=== PATIENT | male | born 1950 | race Caucasian/White ===

== ENCOUNTER 2020-01-22 08:09 | Outpatient (CLI) | payer MEDICARE, OTHER, SELFPAY | END 2020-01-22 08:10 | disposition home or self-care (01) | PROVIDERS: PCP Internal Medicine; Visit Provider Internal Medicine Pulmonary Disease | DX: J44.9 Chronic obstructive pulmonary disease, unspecified (principal) | CPT/HCPCS: 94060; 94726; 94729 ==

== ENCOUNTER 2021-12-20 07:24 | Outpatient (CLI) | payer MEDICARE, OTHER, SELFPAY ==
--- NOTE | ~2021-12-20 | US_ITS ---
EXAMINATION: US aorta [facility] scr[facility] DATE: 12/20/2021 08:24 INDICATION: Abdominal aortic aneurysm screening, history of hypertension, tobacco use, and hyperchole sterolemia TECHNIQUE: Grayscale, color Doppler, and pulsed Doppler images of the aorta and common iliac arteries were obtained. COMPARISON: None. FINDINGS: Maximum vascular dimensions are as follows: Proximal aorta: 2.7 cm Mid aorta: 2.0 cm Distal aorta: 2.0 cm Right common iliac artery: 1.2 cm Left common iliac artery: 1.1 cm There is no evidence of abdominal aortic aneurysm. IMPRESSION: 1. No sonographic evidence of abdominal aortic aneurysm. Reviewed, dictated and finalized at location A.
[2021-12-20 09:12] LABS: Cholesterol 124 mg/dL (0-200); HDL Direct 43 mg/dL; Triglycerides 136 mg/dL (<150)
[2021-12-20 09:23] LABS: LDL Cholesterol Direct 53 mg/dL
== END 2021-12-20 07:25 | disposition home or self-care (01) ==
PROVIDERS: PCP Internal Medicine; Visit Provider Internal Medicine Cardiovascular Disease
DX: Z72.0 Tobacco use (principal); I73.9 Peripheral vascular disease, unspecified; R09.89 Other specified symptoms and signs involving the circulatory and respiratory systems; E78.5 Hyperlipidemia, unspecified
CPT/HCPCS: 36415; 76706; 80061

== ENCOUNTER 2022-03-27 10:11 | Outpatient (CLI) | payer MEDICARE, OTHER, SELFPAY ==
--- NOTE | ~2022-03-27 | US_ITS ---
EXAMINATION: US carotid duplex BI DATE: 03/27/2022 10:51 INDICATION: Carotid bruits TECHNIQUE: Grayscale, color Doppler, and pulsed Doppler images of the cervical carotid arteries were obtained. The degree of vessel stenosis is placed in one of the following categories: normal, <50%, 5 0-69%, >=70% but less than near-occlusion, near-occlusion, or total occlusion. Note that percent sten osis relative to normal distal artery lumen diameter is indirectly measured from velocity measurement s as described by Rahul, et al. Radiology 2003; 229:340-346. Notes: Normal: Peak systolic velocity <125 centimeters/sec and no plaque <50%. Peak systolic velocity <125 ( EDV <40; ICA/CCA PSV ratio <2.0; used these factors only a tandem lesions or low cardiac output or co ntralateral disease) 50-69 %: PSV 125-230 (EDV 40-100; ratio 2-4) >= 70% but less than near occlusion: PSV greater than 230 (EDV > 100; ratio> 4.0) Near Occlusion: PSV that is variable; markedly narrowed lumen Occlusion: Absent flow on color/spectral Doppler and no lumen on simeon scale. COMPARISON: None. FINDINGS: RIGHT: The right common carotid artery (CCA) peak systolic velocity (PSV) is 126 cm/s. The right internal ca rotid artery (ICA) PSV is 56 cm/s. The right ICA end-diastolic velocity (EDV) is 16 cm/s. The right I CA/CCA PSV ratio is 0.4. The external carotid artery (ECA) PSV is 85 cm/s. There is antegrade flow in the right vertebral artery. LEFT: The left CCA PSV is 104 cm/s. The left ICA PSV is 61 cm/s. The left ICA EDV is 15 cm/s. The left ICA/ CCA PSV ratio is 0.6. The ECA PSV is 96 cm/s. There is antegrade flow in the left vertebral artery. IMPRESSION: 1. Less than 50% stenosis in the right internal carotid artery by sonographic criteria. 2. Less than 50% stenosis in the left internal carotid artery by sonographic criteria. Reviewed, dictated and finalized at location B. RPRISE SYSTEMS MANAGER IMPRESSION: 1. Less than 50% stenosis in the right internal carotid artery by sonographic osmany travis. 2. Less than 50% stenosis in the left internal carotid artery by sonographic kristyn palacios.
== END 2022-03-27 10:12 | disposition home or self-care (01) ==
PROVIDERS: PCP Internal Medicine; Visit Provider Internal Medicine Cardiovascular Disease
DX: I65.23 Occlusion and stenosis of bilateral carotid arteries (principal)
CPT/HCPCS: 93880

== ENCOUNTER 2022-04-07 09:51 | Outpatient (CLI) | payer MEDICARE, SELFPAY ==
[2022-04-07 10:56] LABS: Alanine Aminotransferase 34 U/L (16-63); Albumin Level 3.9 g/dL (3.4-5.0); Alkaline Phosphatase 85 U/L (46-116); Anion Gap 8 mmol/L (8-16); Aspartate Amino Transferase 15 U/L (15-37); Bilirubin,Total 0.4 mg/dL (0.00-1.00); Blood Urea Nitrogen 21 mg/dL (7-18); Calcium 8.9 mg/dL (8.5-10.1); Carbon Dioxide 32 mmol/L (21-32); Chloride 105 mmol/L (98-108); Cholesterol 118 mg/dL (0-200); Estimated Glomerular Filt Rate > 60; Glucose 114 mg/dL (70-99); HDL Direct 52 mg/dL (40-60); LDL Cholesterol Calculated 42 mg/dL (<130); Osmolality Calculated 304 mOsm/kg (285-295); Potassium 4.1 mmol/L (3.5-5.1); Sodium 145 mmol/L (136-145); Total Protein 6.8 g/dL (6.4-8.2); Triglycerides 121 mg/dL (0-150)
== END 2022-04-07 09:52 | disposition home or self-care (01) ==
LOC: CHSLAB 09:55
PROVIDERS: PCP Internal Medicine; Visit Provider Internal Medicine Cardiovascular Disease
DX: E78.5 Hyperlipidemia, unspecified (principal); I10 Essential (primary) hypertension
CPT/HCPCS: 36415; 80053; 80061

== ENCOUNTER 2023-10-15 12:59 | Outpatient (CLI) | payer MEDICARE, OTHER, SELFPAY ==
--- NOTE | ~2023-10-15 | XR_ITS ---
Clinical Indication: Shortness of breath PA and lateral views of the chest: Comparison: 05/04/2017 Findings: The lungs are clear, without evidence of focal consolidation or pleural effusion. Probable COPD. Cardiomediastinal silhouette is within normal limits. Bones and soft tissues are unremarkable. Impression: Clear lungs. Probable COPD. Reviewed, dictated and finalized at location . Impression: Clear lungs. Probable COPD.
== END 2023-10-15 13:00 | disposition home or self-care (01) ==
LOC: CHSIMG 13:01
PROVIDERS: PCP Internal Medicine; Visit Provider Internal Medicine Pulmonary Disease
DX: R06.02 Shortness of breath (principal)
CPT/HCPCS: 71046

== ENCOUNTER 2024-10-27 07:55 | Outpatient (CLI) | payer MEDICARE, OTHER, SELFPAY ==
[2024-10-27 08:10] LABS: Basophils Absolute Auto 0.12 K/mm3 (0.00-0.10); Basophils Percent Auto 0.7 % (0.0-1.0); Eosinophils Absolute Auto 0.51 K/mm3 (0.02-0.50); Eosinophils Percent Auto 3.1 % (1.0-6.0); Hematocrit 44.4 % (37.0-46.0); Hemoglobin 15.1 g/dL (12.4-15.3); Immature Granulocyte Absolute 0.07 K/mm3 (0.00-0.00); Immature Granulocyte Percent A 0.4 % (0.0-0.0); Lymphocytes Absolute Auto 2.41 K/mm3 (1.10-4.50); Lymphocytes Percent Auto 14.7 % (18.0-42.0); Mean Corpuscular Hemoglobin 31.3 pg (27.0-31.0); Mean Corpuscular Volume 91.9 fL (78.0-102.0); Monocytes Absolute Auto 1.78 K/mm3 (0.10-0.90); Monocytes Percent Auto 10.9 % (2.0-11.0); Neutrophils Absolute Auto 11.45 K/mm3 (1.70-7.20); Neutrophils Percent Auto 70.2 % (50.0-70.0); Platelet Count Result 361 K/mm3 (150-420); Red Blood Count 4.83 M/mm3 (4.70-6.10); Red Cell Distribution Width 13.2 % (11.6-14.4); White Blood Count 16.3 K/mm3 (4.8-10.8)
[2024-10-27 08:47] LABS: Alanine Aminotransferase 22 U/L (6-50); Albumin Level 3.9 g/dL (3.5-5.1); Alkaline Phosphatase 69 U/L (38-126); Anion Gap 4 mmol/L (4-12); Aspartate Amino Transferase 35 U/L (17-59); Bilirubin,Total 0.6 mg/dL (0.2-1.3); Blood Urea Nitrogen 16 mg/dL (9-20); Calcium 8.8 mg/dL (8.4-10.2); Carbon Dioxide 32 mmol/L (22-30); Chloride 106 mmol/L (98-107); Cholesterol 106 mg/dL (0-200); Estimated Glomerular Filt Rate > 60; Glucose 105 mg/dL (65-110); HDL Direct 47 mg/dL; LDL Cholesterol Calculated 46 mg/dL (<130); Osmolality Calculated 295 mOsm/kg (285-295); Potassium 3.6 mmol/L (3.4-5.0); Sodium 142 mmol/L (137-145); Total Protein 6.4 g/dL (6.3-8.2); Triglycerides 67 mg/dL (<150)
[2024-10-27 09:17] LABS: Prostate Specific Antigen 4.4 ng/mL (< OR = 4.0)
== END 2024-10-27 07:56 | disposition home or self-care (01) ==
LOC: CHSLAB 08:00
PROVIDERS: PCP Internal Medicine; Visit Provider Internal Medicine
DX: E78.5 Hyperlipidemia, unspecified (principal); I10 Essential (primary) hypertension; R97.20 Elevated prostate specific antigen [PSA]
CPT/HCPCS: 36415; 80053; 80061; 84153; 85025

== ENCOUNTER 2025-04-21 10:33 | Outpatient (CLI) | payer MEDICARE, OTHER, SELFPAY ==
--- NOTE | ~2025-04-21 | US_ITS ---
EXAMINATION: US venous doppler LE RT, 04/21/2025 10:47 NURSING TEACHER HISTORY: R LEG EDEMA, PAD, COPD COMPARISON: None Technique: Quesada-scale and color Doppler images were attempted of the lower saphenofemoral junction, common femoral vein,superficial femoral vein, proximal deep femoral vein, proximal deep femoral vein, popliteal vein and posterior tibial veins. Findings: Deep Venous System:Normal flow, augmentation and compressibility. No echogenic thrombus identified. Superficial Venous SystemNo superficial thrombophlebitis. Soft tissues: Soft tissues are unremarkable. Impression: Negative for DVT. Reviewed, dictated and finalized at location P. ING TEACHER Impression: Negative for DVT.
[2025-04-21 10:55] LABS: Hematocrit 46.4 % (37.0-46.0); Hemoglobin 15.9 g/dL (12.4-15.3); Mean Corpuscular HGB Conc 34.3 g/dL (32-36); Mean Corpuscular Hemoglobin 31.4 pg (27.0-31.0); Mean Corpuscular Volume 91.5 fL (78.0-102.0); Platelet Count Result 345 K/mm3 (150-420); Red Blood Count 5.07 M/mm3 (4.70-6.10); White Blood Count 17.3 K/mm3 (4.8-10.8)
[2025-04-21 11:49] LABS: Alanine Aminotransferase 26 U/L (6-50); Albumin Level 4.6 g/dL (3.5-5.1); Alkaline Phosphatase 81 U/L (38-126); Anion Gap 11 mmol/L (4-12); Aspartate Amino Transferase 34 U/L (17-59); Bilirubin,Total 0.7 mg/dL (0.2-1.3); Blood Urea Nitrogen 22 mg/dL (9-20); Calcium 10.2 mg/dL (8.4-10.2); Carbon Dioxide 30 mmol/L (22-30); Chloride 102 mmol/L (98-107); Estimated Glomerular Filt Rate > 60; Glucose 97 mg/dL (65-110); Osmolality Calculated 299 mOsm/kg (285-295); Potassium 3.5 mmol/L (3.4-5.0); Sodium 143 mmol/L (137-145); Total Protein 7.1 g/dL (6.3-8.2)
[2025-04-21 12:21] LABS: Thyroid Stimulating Hormone 1.650 uIU/mL (0.465-4.680)
--- OUTSIDE RECORDS SUMMARY | 2025-04-21 12:30 | XMS_ITS | Encounter Summary ---
Author Organization [facility] Healthcare Address [address] [place] [address] Care Team Providers Care Home Health Registered Nurse Name Role Phone Talat Penn MD Primary Care Provider Encounter Details Date Type Department Care Team (Late st Contact Info) Description 12/21/2017 Orders Only [facility] Health Information Management [address] [place] [address] Scanning, Provider Social History Tobacco Use Types Packs/Day Years Used Date Smoking Tobacco: Every Day Smokeless Tobacco: Never Comments:Counseled pt regard ing not smoking for 24 hrs prior to procedure. Encouraged to speak with PCP for assist. Alcohol Use Standard Drinks/Week Comments No 0 (1 standard drink = 0.6 oz pure alcohol) quit in 1990, relapsed twice, is now clean Sex and Gender Information Value Date Recorded Sex Assigned at Not on file Legal Sex Male 8:03 AM CDT Gender Identity Male 10/22/2019 5:14 PM CDT Sexual Orientation Straight 10/22/2019 5: 14 PM CDT documented as of this encounter Plan of Treatment Not on file documented as of this encounter Procedures Procedure Name Priority Date/Time Associated Diagnosis Comments SCAN - RADIOLOGY/IMAGING 12/21/2017 documented in this encounter Results * SCAN - RADIOLOGY/IMAGING (12/21/2017) Anatomical Region Laterality Modality Other us Provider Scanning Final Result documented in this encounter Visit Diagnoses Not on filedocumented in this encounter Care Teams Home Health Registered Nurse Relationship Specialty Start Date End Date Talat Penn MD PCP - General Internal Medicine 11/16/17 documented as of this encounter
--- OUTSIDE RECORDS SUMMARY | 2025-04-21 12:30 | XMS_ITS | Clinical Summary ---
Author Organization [facility] [address] Address [address] [place] [address] Care Team Providers Care Shoe Treer Name Role Phone Talat Penn MD Primary Care Provider [phone] Allergies Active Allergy Reactions Criticality Noted Date Comments Atorvastatin Muscle pain Medium 11/29/2017 Lovastatin Muscle pain Medium 11/29/2017 Medications fluticasone (FLONASE) 50 mcg/actuation nasal spray Administer 2 sprays into each nostril daily as needed 8 Active hydroCHLOROthi azide (HYDRODIURIL) 25 mg tablet Take 1 tablet (25 mg total) by mouth daily 8 Active montelukast (SINGULAIR) 10 mg tablet Take 1 tablet (10 mg total) by mouth nightly 8 Active ipratropium (ATROVENT) 0.02 % nebulizer solution Take by nebulization as needed. 8 Active multivitamin capsule Take 1 capsule by mouth daily Active ascorbic acid (VITAMIN C) 1,000 mg tablet Take 1 tablet (1,000 mg total) by mouth daily Active aspirin 81 mg tablet Take 1 tablet (81 mg total) by mouth daily. 90 tablet 3 8 Active losartan (COZAAR) 100 mg tablet Take 1 tablet (100 mg total) by mouth daily Active albuterol HFA (PROVENTIL HFA,VENTOLIN HFA,PROAIR HFA) 90 mcg/actuation inhaler Inhale 2 puffs every 6 (six) hours as needed for wheezing Active guaiFENesin 1,200 mg tablet extended release 12hr Take 1,200 mg by mouth 2 (two) times a day Active fexofenadine (JANE) 180 mg tablet Take 1 tablet (180 mg total) by mouth daily Active atenoloL (TENORMIN) 100 mg tablet Take 1 tablet (100 mg total) by mouth daily 1 Active amLODIPine (NORVASC) 10 mg tablet 1 Active budesonide (PULMICORT) 0.5 mg/2 mL nebulizer solution 4 Active formoterol (PERFOROMIST) 20 mcg/2 mL nebulizer solution 4 Active furosemide (LASIX) 20 mg tabletIndicati ons:Bilateral lower extremity edema TAKE ONE TABLET BY MOUTH DAILY NEEDED FOR SWELLING 30 tablet 4 5 Active nitroglycerin (NITROSTAT) 0.4 mg SL tabletIndicati ons:Coronary artery disease of [place] artery of [place] heart with stable angina pectoris Place 1 tablet (0.4 mg total) under the tongue every 5 (five) minutes as needed for chest pain Seek medical attention after 3rd tab 25 tablet 4 5 026 Active Repatha SureClick 140 mg/mL pen injector INJECT ONE (1) ML SUBCUTANEOUSLY EVERY 14 DAYS 2 mL 6 5 Active Active Problems Problem Noted Date Diagnosed Date Bilateral lower extremity edema 01/11/2024 Lipid screening 12/29/2022 DOMINGUEZ (dyspnea on exertion) 10/31/2021 Bilateral carotid bruits 04/26/2021 Coronary artery disease of n ative artery of [place] heart with stable angina pectoris 12/19/2017 Right leg swelling 12/19/2017 PAD (peripheral artery disease) 11/29/2017 Chronic obstructive pulmonary disease 11/29/2017 Hyperlipidemia LDL goal <70 11/29/2017 Essential hypertension 11/29/2017 Tobacco abuse 11/29/2017 Family history of premature coronary artery dise ase 11/29/2017 Chest pain 11/29/2017 Overview (11/29/2017): Added automatically from request for surgery [id number] Surgical History Surgery Date Site/Laterality Comments APPENDECTOMY HERNIA REPAIR CATARACT EXTRACTION 2020 Medical History Medical History Date Comments PVD (peripheral vascular disease) Hypertension Hyperlipidemia COPD (chronic obstructive pulmonary disease) Asthma Cataract Chronic bronchitis (HCC) Family History Medical History Relation Name Comments Diabetes type II Brother Coronary artery disease Father Shaan Sandoval Heart attack Father Shaan Sandoval Diabetes Mother Eleni Sandoval Peripheral vascular disease Mother Eleni Sandoval COPD Sister Thalia Denny Relation Name Status Comments Brother Father Shaan Sandoval Mother Eleni Sandoval Sister Thalia Denny Social History Tobacco Use Types Packs/Day Years Used Date Smoking Tobacco: Every Day Cigarettes 1 55 Smokeless Tobacco: Never Tobacco Cessation:Ready to Q uit: Not Asked; Counseling Given: Not Answered Comments:Pretty much since about 16-17 Alcohol Use Standard Drinks/Week Comments No 0 (1 standard drink = 0.6 oz pure alcohol) quit in 1990, relapsed twice, is now clean Sex and Gender Information Value Date Recorded Sex Assigned at Not on file Legal Sex Male 8:03 AM CDT Gender Identity Male 10/22/2019 5:14 PM CDT Sexual Orientation Straight 10/22/2019 5: 14 PM CDT Last Filed Vital Signs Vital Sign Reading Time Taken Comments Blood Pressure 142/68 09/22/2024 11:10 AM CDT Pulse 63 09/22/2024 11:10 AM CDT Temperature 36.4 C (97.5 F) 12/08/2017 12:05 PM CDT Respiratory Rate 16 12/19/2017 8:44 AM CDT Oxygen Saturation 93% 09/22/2024 11:10 AM CDT Inhaled Oxygen Concentration - - Weight 73.9 kg (163 lb) 09/22/2024 11:10 AM CDT Height 172.7 cm (5' 8) 09/22/2024 11:10 AM CDT Body Mass Index 24.78 09/22/2024 11:10 AM CDT Plan of Treatment Health Maintenance Due Date Last Done Comments Colon Cancer Screening-Colonoscopy 1950 Depression Screening 1950 Fall Risk Assessment 1950 Hepatitis C Screening 1950 Hepatitis B Screening 01/19/1970 Lung Cancer Screening 01/19/2002 Zoster Vaccine (1 of 2) 01/19/2002 Well Visit 65+ 01/19/2017 DTaP/Tdap/Td Vaccine (2 - Td or Tdap) 03/14/2024 03/14/2014 Influenza Vaccine (#1) 2025 , 02/17/2019, 02/19/2018, Additional history exists Pneumococcal vaccine 65+ Completed 018, 04/09/2017, 04/06/2017 Abdominal Aortic Aneurysm (A AA) Screen Completed 12/20/2021 Medical Devices Implanted Type Area Inside Sales Associate Device Identifier Shelf Expiration Date Model / Serial / Lot [employer] [id number] Synergy 2.5mm 20mm 144cm Radiopaque 1 Access Port Inflation Lumen - [id number] Implanted:Qty: 1 on 12/07/2017 by Quinn Morrow MD at [facility] [employer] 05/30/2018 [id number] / / [id number] [employer] [id number] Synergy 3mm 24mm 144cm Radiopaque 1 Access Port Inflation Lumen - [id number] Implanted:Qty: 1 on 12/07/2017 by Quinn Morrow MD at [facility] [employer] 03/22/2018 [id number] / / [id number] [employer] [id number] Omnilink Elite 7mm 39mm 135cm Otw Balloon Expandable Low Profile - [id number] Implanted:Qty: 1 on 12/07/2017 by Quinn Morrow MD at [facility] [employer] 03/06/2021 [id number] / / [id number] Procedures Procedure Name Priority Date/Time Associated Diagnosis Comments US ABDOMINAL AORTIC ANEURYSM SCREENING Schedule Routine, Read Routine (OP Routine) 12/20/2021 Tobacco abuse from Last 3 Months or Most Recently Relevant to Health Maintenance Results * US Abdominal Aortic Aneurysm Screening (12/20/2021) Anatomical Region Laterality Modality Abdomen Ultrasound us Jae Gao MD [facility] US PROCEDURES Final R esult from Last 3 Months or Most Recently Relevant to Health Maintenance Insurance MEDICARE [employer] Care Teams Shoe Treer Relationship Specialty Start Date End Date Talat Penn MD PCP - General Internal Medicine 11/16/17
--- OUTSIDE RECORDS SUMMARY | 2025-04-21 12:30 | XMS_ITS | Clinical Summary ---
Author Organization [facility] Address [address] [place] [id number] Care Team Providers Care Room Service Attendant Name Role Phone Unavailable Primary Care Provider Unavailabl e Social History Tobacco Use Types Packs/Day Years Used Date Smoking Tobacco: Smoker, Current Status Unknown Sex and Gender Information Value Date Recorded Sex Assigned at Not on file Legal Sex Male 9:29 PM CDT Gender Identity Not on file Sexual Orientation Not on file Plan of Treatment Health Maintenance Due Date Last Done Comments Colorectal Cancer Screening Colonoscopy (10 Years) 1950 Hepatitis C 01/19/1970 DTaP, Tdap and Td Vaccines ( 1 - Tdap) 01/19/1971 Pneumococcal Vaccine: 50+ Ye ars (1 of 1 - PCV) 01/19/2002 Zoster Vaccines (1 of 2) 01/19/2002 COVID-19 Vaccine ( - 2024-2 6 season) 2025 Influenza Adult (#1) 2025 RSV Immunization or 60+ Years (1 - 1-dose 75+ series) 01/19/2027 Hepatitis A Vaccines Aged Out No long er eligible based on patient's age to complete this topic Meningococcal B Vaccine Aged Out No l onger eligible based on patient's age to complete this topic Meningococcal Vaccine Aged Out No dm roya eligible based on patient's age to complete this topic RSV Immunizations Under 20 Months Aged Out No longer eligible based on patient's age to complete this topic
== END 2025-04-21 10:34 | disposition home or self-care (01) ==
LOC: CHSLAB 10:35
PROVIDERS: PCP Internal Medicine; Visit Provider Internal Medicine
DX: R60.0 Localized edema (principal); I73.9 Peripheral vascular disease, unspecified; J44.9 Chronic obstructive pulmonary disease, unspecified
CPT/HCPCS: 36415; 80053; 84443; 85027; 93971